=== PATIENT | male | born 1960 | race Two or more races ===

== ENCOUNTER 2017-10-15 12:28 | Emergency (ER) | payer SELFPAY ==
[~2017-10-15] VITALS: Ht 167.6 cm; Wt 86.0 kg
[2017-10-15 12:50] VITALS: BP 121/85
[2017-10-15] MEDS ORDERED: CEPHALEXIN 500MG CAPSULE PO ONE (13:15)
[2017-10-15] MEDS ORDERED: SULFAMETHOXAZOLE/TRIMETHOPRIM 800/160MG TABLET PO ONE (13:15)
[2017-10-15] MEDS ORDERED: TETANUS, DIPHTHERIA, PERTUSSIS VAC/PF 0.5ML (>7YR OLD) IM ONE (13:15)
== END 2017-10-15 14:59 | disposition home or self-care (01) ==
LOC: ER 13:00
DX: L03.012 Cellulitis of left finger (principal); Z23 Encounter for immunization; F17.200 Nicotine dependence, unspecified, uncomplicated
CPT/HCPCS: 90471; 90715; 99283